=== PATIENT | male | born 1965 | race Caucasian/White ===

== ENCOUNTER 2023-10-18 17:48 | Emergency (ER) | payer MEDICAID ==
[~2023-10-18] VITALS: Ht 172.7 cm; Wt 81.8 kg
[~2023-10-18 17:48] MED LIST: HTN MEDICATION PO
[2023-10-18 17:54] VITALS: BP 160/94; PULSE 88; RESP 18; TEMP 98.5
[2023-10-18] MEDS ORDERED: PROPARACAINE HCL 0.5% 15 ML OPHTHALMIC SOLUTION OD ONE (19:45)
[2023-10-18] MEDS ORDERED: FLUORESCEIN SODIUM 1 MG STRIP OD ONE (19:45)
== END 2023-10-18 21:54 | disposition left against medical advice (07) ==
LOC: EMS 17:48
DX: Z53.21 Procedure and treatment not carried out due to patient leaving prior to being seen by health care provider (principal)
CPT/HCPCS: 99281; J9035; Z7502; Z7610